=== PATIENT | male | born 1935 | race Caucasian/White ===

== ENCOUNTER 2021-06-26 13:20 | Inpatient (IN) | payer MEDICARE ==
[2021-06-26 15:00] LABS: #Basophils 0.1 thou/uL (0.0-0.2); #Eosinphils 0.5 thou/uL (0.0-0.7); #Lymphocytes 1.7 thou/uL (1.20-3.40); #Monocytes 0.9 thou/uL (0.11-0.59); #Neutrophils 4.5 thou/uL (1.40-6.50); %Basophils 0.7 % (0.0-1.0); %Eosinophils 6.8 % (0.0-10.0); %Lymphocytes 21.8 % (21.0-51.0); %Monocytes 12.1 % (0.0-10.0); %Neutrophils 58.6 % (42.0-75.0); Hemoglobin 13.7 g/dL (14.0-18.0); Mean Corpuscular Hemoglobin 33.8 pg (27.0-31.0); Mean Platelet Volume 7.2 fL (7.4-10.4); Platelet Count 227 thou/uL (130-400); Red Blood Cell (RBC) Count 4.05 mill/uL (4.70-6.10); White Blood Cell (WBC) Count 7.7 thou/uL (4.8-10.8)
[2021-06-26 15:13] LABS: ALT (SGPT) 11 U/L (8-55); AST (SGOT) 19 U/L (5-34); Alkaline Phosphatase 88 U/L (40-110); Anion Gap 11 mmol/L (10-20); BUN (Urea Nitrogen) 24 mg/dL (8.4-25.7); Bilirubin, Total 0.6 mg/dL (0.2-1.2); Calc. Creatinine Clearance 0 mL/min (70-130); Calcium 9.7 mg/dL (7.8-10.44); Carbon Dioxide 27 mmol/L (23-31); Chloride 105 mmol/L (98-107); Globulin 3.6 g/dL (2.4-3.5); Glucose 82 mg/dL (83-110); Potassium 4.8 mmol/L (3.5-5.1); Protein, Total 7.6 g/dL (5.8-8.1); Sodium 138 mmol/L (136-145)
[2021-06-26] MEDS ORDERED: Ondansetron PF 4 MG/2 ML Vial IVP PRN (16:43)
[2021-06-26] MEDS ORDERED: Bisacodyl 10 MG SUPP PR PRN (16:43)
[2021-06-26] MEDS ORDERED: Ondansetron ODT 4 MG TAB PO PRN (16:43)
[2021-06-26] MEDS ORDERED: Acetaminophen 325 MG TAB PO PRN (16:43)
[2021-06-26] MEDS ORDERED: Bisacodyl 5 MG TAB PO PRN (16:43)
[2021-06-26 17:17] LABS: Hemoglobin A1c 5.5 % (4.0-6.0)
[2021-06-26 18:15] LABS: Bacteria/HPF None Seen HPF (None Seen); Bilirubin Negative (Negative); Blood, Urine Negative (Negative); Clarity Clear (Clear); Glucose, Urine (Dipstick) Normal (Negative); Ketone, Urine Negative (Negative); Leukocyte Negative Leu/uL (Negative); Nitrite Negative (Negative); Protein, Urine (Dipstick) Negative (Neg-Trace); RBC/HPF 0-3 HPF (0-3); Specific Gravity, Urine 1.016 (1.002-1.036); Squamous Epithelial None Seen HPF (0-3); Urobilinogen Normal mg/dL (Less than 2); WBC/HPF 0-3 HPF (0-3); pH, Urine 6.5 (5.0-9.0)
[2021-06-26 18:46] VITALS: BMI 29.4
[2021-06-26] MEDS: Senokot S 8.6-50 MG TAB PO SCH (20:07)
[2021-06-26 21:48] LABS: SARS-CoV-2 NAA Rapid Test Not Detected (NotDetected)
[2021-06-27 03:50] LABS: #Eosinphils 0.5 thou/uL (0.0-0.7); #Lymphocytes 1.9 thou/uL (1.20-3.40); #Monocytes 0.8 thou/uL (0.11-0.59); #Neutrophils 3.8 thou/uL (1.40-6.50); %Basophils 0.6 % (0.0-1.0); %Eosinophils 7.5 % (0.0-10.0); %Lymphocytes 26.9 % (21.0-51.0); %Monocytes 11.7 % (0.0-10.0); %Neutrophils 53.3 % (42.0-75.0); Hemoglobin 13.4 g/dL (14.0-18.0); Mean Corpuscular HGB CONC 32.8 g/dL (32.0-36.0); Mean Corpuscular Hemoglobin 33.4 pg (27.0-31.0); Mean Platelet Volume 7.1 fL (7.4-10.4); Platelet Count 201 thou/uL (130-400); RBC Distribution Width 12.9 % (11.5-14.5); Red Blood Cell (RBC) Count 4.02 mill/uL (4.70-6.10); White Blood Cell (WBC) Count 7.1 thou/uL (4.8-10.8)
[2021-06-27 04:01] LABS: INR-International Normal Ratio 1.1; Prothrombin Time 14.1 sec (12.0-14.7)
[2021-06-27 04:02] LABS: PTT 32.6 sec (22.9-36.1)
[2021-06-27 04:15] LABS: Anion Gap 14 mmol/L (10-20); BUN (Urea Nitrogen) 21 mg/dL (8.4-25.7); Calc. Creatinine Clearance 68 mL/min (70-130); Calcium 9.1 mg/dL (7.8-10.44); Carbon Dioxide 21 mmol/L (23-31); Chloride 106 mmol/L (98-107); Glucose 74 mg/dL (83-110); Phosphorus 3.9 mg/dL (2.3-4.7); Potassium 3.8 mmol/L (3.5-5.1); Sodium 137 mmol/L (136-145)
[2021-06-27] MEDS: Senokot S 8.6-50 MG TAB PO SCH ×2 (09:14→21:37)
[2021-06-27] MEDS: Losartan/Hydrochlorothiazide 100 mg/25 mg Tablet PO SCH (09:14)
[2021-06-27] MEDS: Escitalopram Oxalate 20 mg Tablet PO SCH (09:14)
[2021-06-27] MEDS ORDERED: Levofloxacin 500 mg/D5W 100 ml Premix Bag ONE (10:31)
[2021-06-27] MEDS ORDERED: Clindamycin/D5W 600 mg/50 ml Premix Bag ONE (11:56)
[2021-06-27] MEDS ORDERED: Vancomycin HCl 500 MG VIAL ONE (11:56)
[2021-06-27] MEDS ORDERED: Midazolam HCl 2 mg/2 ml Vial ONE (12:36)
[2021-06-27] MEDS ORDERED: Fentanyl 250 MCG/5 ML VIAL ONE (12:37)
[2021-06-27 13:12] LABS: T4 5.2 ug/dL (4.87-11.72); Thyroid Stimulating Hormone 1.2439 uIU/mL (0.35-4.94)
[2021-06-28 03:26] LABS: #Basophils 0.1 thou/uL (0.0-0.2); #Eosinphils 0.4 thou/uL (0.0-0.7); #Lymphocytes 1.5 thou/uL (1.20-3.40); #Neutrophils 4.7 thou/uL (1.40-6.50); %Basophils 0.9 % (0.0-1.0); %Eosinophils 4.6 % (0.0-10.0); %Lymphocytes 20.1 % (21.0-51.0); %Neutrophils 61.4 % (42.0-75.0); Hemoglobin 14.5 g/dL (14.0-18.0); Mean Corpuscular HGB CONC 33.7 g/dL (32.0-36.0); Mean Corpuscular Hemoglobin 34.1 pg (27.0-31.0); Mean Platelet Volume 7.1 fL (7.4-10.4); Platelet Count 200 thou/uL (130-400); RBC Distribution Width 12.8 % (11.5-14.5); Red Blood Cell (RBC) Count 4.26 mill/uL (4.70-6.10); White Blood Cell (WBC) Count 7.6 thou/uL (4.8-10.8)
[2021-06-28 03:50] LABS: Anion Gap 12 mmol/L (10-20); BUN (Urea Nitrogen) 17 mg/dL (8.4-25.7); Calc. Creatinine Clearance 60 mL/min (70-130); Calcium 9.1 mg/dL (7.8-10.44); Carbon Dioxide 24 mmol/L (23-31); Chloride 106 mmol/L (98-107); Glucose 81 mg/dL (83-110); Magnesium 1.8 mg/dL (1.6-2.6); Phosphorus 3.1 mg/dL (2.3-4.7); Potassium 4.4 mmol/L (3.5-5.1); Sodium 138 mmol/L (136-145)
[2021-06-28 07:17] VITALS: TEMP 98
[2021-06-28] MEDS: Senokot S 8.6-50 MG TAB PO SCH (09:51)
[2021-06-28] MEDS: Escitalopram Oxalate 20 mg Tablet PO SCH (09:51)
[2021-06-28] MEDS: Losartan/Hydrochlorothiazide 100 mg/25 mg Tablet PO SCH (09:51)
[2021-06-28 11:45] VITALS: BP 132/83
== END 2021-06-28 15:16 | disposition home or self-care (01) | DRG 243 ==
LOC: SUATTDRO 13:20 → ERS 13:20 → IMCU/EMU 16:36
PROVIDERS: ADMIT Family Medicine; ATTEND Hospitalist
PROC: 0JH604Z Insertion of Pacemaker, Single Chamber into Chest Subcutaneous Tissue and Fascia, Open Approach (ICD-10-PCS; principal; 2021-06-27)
PROC: 02HK3JZ Insertion of Pacemaker Lead into Right Ventricle, Percutaneous Approach (ICD-10-PCS; 2021-06-27)
DX: I48.21 Permanent atrial fibrillation (principal); I69.351 Hemiplegia and hemiparesis following cerebral infarction affecting right dominant side; R00.1 Bradycardia, unspecified; Z20.822 Contact with and (suspected) exposure to COVID-19; I10 Essential (primary) hypertension; G43.909 Migraine, unspecified, not intractable, without status migrainosus; F32.A Depression, unspecified; Z96.651 Presence of right artificial knee joint; G43.109 Migraine with aura, not intractable, without status migrainosus; F41.9 Anxiety disorder, unspecified; I08.3 Combined rheumatic disorders of mitral, aortic and tricuspid valves; E16.2 Hypoglycemia, unspecified; R73.9 Hyperglycemia, unspecified; Z88.0 Allergy status to penicillin; Z88.2 Allergy status to sulfonamides; Z91.041 Radiographic dye allergy status; Z91.018 Allergy to other foods; Z79.899 Other long term (current) drug therapy; Z90.49 Acquired absence of other specified parts of digestive tract; Z87.891 Personal history of nicotine dependence; Z82.49 Family history of ischemic heart disease and other diseases of the circulatory system; Z82.3 Family history of stroke; Z83.2 Family history of diseases of the blood and blood-forming organs and certain disorders involving the immune mechanism
CPT/HCPCS: 33207; 36415; 36416; 71045; 80048; 80053; 81001; 83036; 83735; 83880; 84100; 84436; 84443; 84484; 85025; 85610; 85730; 86850; 86900; 86901; 93005; 93010; 93306; 93798; 99152; C1785; C1898; J1956; J2250; J3010; J3370; J3490; U0002

== ENCOUNTER 2022-05-04 05:46 | Inpatient (IN) | payer MEDICARE, OTHER ==
[2022-05-04 07:10] LABS: #Eosinphils 0.1 thou/uL (0.0-0.7); #Lymphocytes 0.8 thou/uL (1.20-3.40); #Neutrophils 9.8 thou/uL (1.40-6.50); %Basophils 0.4 % (0.0-1.0); %Eosinophils 1.1 % (0.0-10.0); %Lymphocytes 6.7 % (21.0-51.0); %Monocytes 8.5 % (0.0-10.0); %Neutrophils 83.3 % (42.0-75.0); Hemoglobin 13.7 g/dL (14.0-18.0); Mean Corpuscular HGB CONC 33.7 g/dL (32.0-36.0); Mean Corpuscular Hemoglobin 34.5 pg (27.0-31.0); Mean Platelet Volume 7.7 fL (7.4-10.4); Platelet Count 221 10x3/uL (130-400); RBC Distribution Width 11.8 % (11.5-14.5); Red Blood Cell (RBC) Count 3.97 mill/uL (4.70-6.10); White Blood Cell (WBC) Count 11.8 10x3/uL (4.8-10.8)
[2022-05-04 07:31] LABS: ALT (SGPT) 11 U/L (8-55); AST (SGOT) 21 U/L (5-34); Albumin 3.7 g/dL (3.4-4.8); Alkaline Phosphatase 72 U/L (40-110); Anion Gap 13 mmol/L (10-20); BUN (Urea Nitrogen) 21 mg/dL (8.4-25.7); Bilirubin, Total 0.7 mg/dL (0.2-1.2); Calc. Creatinine Clearance 0 mL/min (70-130); Calcium 9.5 mg/dL (7.8-10.44); Carbon Dioxide 23 mmol/L (23-31); Chloride 105 mmol/L (98-107); Estimated GFR 46; Globulin 3.4 g/dL (2.4-3.5); Glucose 86 mg/dL (83-110); Magnesium 1.8 mg/dL (1.6-2.6); Potassium 3.8 mmol/L (3.5-5.1); Protein, Total 7.1 g/dL (5.8-8.1); Sodium 137 mmol/L (136-145)
[2022-05-04] MEDS ORDERED: Aspirin Chewable 81 MG TAB ONE (07:56)
[2022-05-04 08:34] LABS: Bacteria/HPF None Seen HPF (None Seen); Bilirubin Negative (Negative); Blood, Urine 3+ (Negative); Clarity Clear (Clear); Glucose, Urine (Dipstick) Normal (Negative); Ketone, Urine Negative (Negative); Leukocyte Negative Leu/uL (Negative); Nitrite Negative (Negative); Protein, Urine (Dipstick) Negative (Neg-Trace); RBC/HPF 21-50 HPF (0-3); Specific Gravity, Urine 1.011 (1.002-1.036); Squamous Epithelial None Seen HPF (0-3); Urobilinogen Normal mg/dL (Less than 2); WBC/HPF 0-3 HPF (0-3)
[2022-05-04] MEDS ORDERED: Azithromycin 500 MG VIAL ONE (08:53)
[2022-05-04] MEDS ORDERED: cefTRIAXone\\ROCEPHIN 2 GM VIAL ONE (08:53)
[2022-05-04] MEDS ORDERED: Furosemide 40 MG/4 ML VIAL ONE (08:53)
[2022-05-04 08:59] LABS: SARS-CoV-2 NAA Rapid Test Not Detected (NotDetected)
[2022-05-04 10:15] LABS: Troponin I 0.067 ng/mL (< 0.028)
[2022-05-04] MEDS ORDERED: Acetaminophen 500 MG TAB ONE (10:26)
[2022-05-04] MEDS ORDERED: Benzonatate 100 MG CAP PO PRN (12:19)
[2022-05-04] MEDS ORDERED: Acetaminophen 500 MG TAB PO PRN (12:19)
[2022-05-04] MEDS ORDERED: Ondansetron PF 4 MG/2 ML Vial IVP PRN (12:19)
[2022-05-04] MEDS ORDERED: Ondansetron ODT 4 MG TAB PO PRN (12:19)
[2022-05-04 13:12] VITALS: BMI 27.7
[2022-05-04 13:15] LABS: Troponin I 0.072 ng/mL (< 0.028)
[2022-05-04] MEDS: Furosemide 20 MG/2 ML VIAL SLOW IVP SCH (14:01)
[2022-05-04] MEDS: Famotidine 20 MG TAB PO SCH (20:09)
[2022-05-04] MEDS: Ketotifen Fumarate 0.025% Ophth Soln 5 ml Bottle EA EYE SCH (20:13)
[2022-05-05] MEDS: Furosemide 20 MG/2 ML VIAL SLOW IVP SCH (05:24)
[2022-05-05 05:47] LABS: #Basophils 0.1 thou/uL (0.0-0.2); #Eosinphils 0.3 thou/uL (0.0-0.7); #Lymphocytes 1.2 thou/uL (1.20-3.40); #Monocytes 0.9 thou/uL (0.11-0.59); %Basophils 0.7 % (0.0-1.0); %Eosinophils 3.8 % (0.0-10.0); %Lymphocytes 13.6 % (21.0-51.0); %Monocytes 10.5 % (0.0-10.0); %Neutrophils 71.4 % (42.0-75.0); Hemoglobin 13.8 g/dL (14.0-18.0); Mean Corpuscular HGB CONC 33.6 g/dL (32.0-36.0); Mean Corpuscular Hemoglobin 34.3 pg (27.0-31.0); Mean Platelet Volume 7.6 fL (7.4-10.4); Platelet Count 222 10x3/uL (130-400); RBC Distribution Width 11.7 % (11.5-14.5); Red Blood Cell (RBC) Count 4.03 mill/uL (4.70-6.10); White Blood Cell (WBC) Count 8.4 10x3/uL (4.8-10.8)
[2022-05-05 06:01] LABS: Anion Gap 14 mmol/L (10-20); BUN (Urea Nitrogen) 23 mg/dL (8.4-25.7); Calc. Creatinine Clearance 43 mL/min (70-130); Calcium 9.1 mg/dL (7.8-10.44); Carbon Dioxide 25 mmol/L (23-31); Chloride 101 mmol/L (98-107); Estimated GFR 43; Glucose 87 mg/dL (83-110); Magnesium 1.9 mg/dL (1.6-2.6); Potassium 3.4 mmol/L (3.5-5.1); Sodium 137 mmol/L (136-145)
[2022-05-05] MEDS ORDERED: Losartan/Hydrochlorothiazide 100 mg/25 mg Tablet PO SCH (09:00)
[2022-05-05] MEDS: Aspirin 81 mg Enteric Coated Tablet PO SCH (10:32)
[2022-05-05] MEDS: Escitalopram Oxalate 20 mg Tablet PO SCH (10:32)
[2022-05-05] MEDS: Ketotifen Fumarate 0.025% Ophth Soln 5 ml Bottle EA EYE SCH ×2 (10:32→19:49)
[2022-05-05] MEDS ORDERED: Potassium Chloride 20 MEQ TAB PO SCH (11:00)
[2022-05-05] MEDS: Famotidine 20 MG TAB PO SCH (19:49)
[2022-05-06 08:20] LABS: Anion Gap 13 mmol/L (10-20); BUN (Urea Nitrogen) 27 mg/dL (8.4-25.7); Calc. Creatinine Clearance 53 mL/min (70-130); Calcium 9.6 mg/dL (7.8-10.44); Carbon Dioxide 25 mmol/L (23-31); Chloride 102 mmol/L (98-107); Estimated GFR 54; Glucose 99 mg/dL (83-110); Potassium 3.5 mmol/L (3.5-5.1); Sodium 136 mmol/L (136-145)
[2022-05-06] MEDS: Carvedilol 6.25 MG TAB PO SCH ×2 (09:47→16:49)
[2022-05-06] MEDS: Escitalopram Oxalate 20 mg Tablet PO SCH (09:48)
[2022-05-06] MEDS: Aspirin 81 mg Enteric Coated Tablet PO SCH (09:48)
[2022-05-06] MEDS: Ketotifen Fumarate 0.025% Ophth Soln 5 ml Bottle EA EYE SCH ×2 (09:48→19:41)
[2022-05-06] MEDS ORDERED: Enalaprilat Dihydrate 1.25 MG/ML VIAL SLOW IVP PRN (10:51)
[2022-05-06] MEDS: predniSONE 50 MG TAB PO SCH ×2 (12:38→16:52)
[2022-05-06] MEDS: diphenhydrAMINE 50 MG/ML VIAL IVP SCH ×2 (12:38→16:52)
[2022-05-06] MEDS: Famotidine/PF 20 mg/2ml Vial SLOW IVP SCH ×2 (12:38→16:52)
[2022-05-06] MEDS: Atorvastatin Calcium 40 MG TAB PO SCH (19:41)
[2022-05-07 05:44] LABS: Anion Gap 12 mmol/L (10-20); BUN (Urea Nitrogen) 40 mg/dL (8.4-25.7); Calc. Creatinine Clearance 49 mL/min (70-130); Calcium 9.6 mg/dL (7.8-10.44); Carbon Dioxide 26 mmol/L (23-31); Chloride 99 mmol/L (98-107); Cholesterol 156 mg/dl (< 200 Desired); Estimated GFR 48; Glucose 108 mg/dL (83-110); HDL Cholesterol 31 mg/dL (>60 Neg Risk); LDL Cholesterol, Calculated 111 mg/dL; Potassium 3.9 mmol/L (3.5-5.1); Sodium 133 mmol/L (136-145); Triglycerides 69 mg/dL (Less than 150)
[2022-05-07] MEDS: Aspirin 81 mg Enteric Coated Tablet PO SCH (08:46)
[2022-05-07] MEDS: Carvedilol 6.25 MG TAB PO SCH ×2 (08:46→16:06)
[2022-05-07] MEDS: Escitalopram Oxalate 20 mg Tablet PO SCH (08:46)
[2022-05-07] MEDS: Ketotifen Fumarate 0.025% Ophth Soln 5 ml Bottle EA EYE SCH ×2 (08:46→21:03)
[2022-05-07] MEDS ORDERED: OLANZapine 2.5 MG TAB PO SCH (20:30)
[2022-05-07] MEDS: Atorvastatin Calcium 40 MG TAB PO SCH (21:02)
[2022-05-08 06:28] LABS: Anion Gap 12 mmol/L (10-20); BUN (Urea Nitrogen) 39 mg/dL (8.4-25.7); Calc. Creatinine Clearance 54 mL/min (70-130); Carbon Dioxide 25 mmol/L (23-31); Chloride 104 mmol/L (98-107); Estimated GFR 55; Glucose 85 mg/dL (83-110); Potassium 3.5 mmol/L (3.5-5.1); Sodium 137 mmol/L (136-145)
[2022-05-08] MEDS: Carvedilol 6.25 MG TAB PO SCH ×2 (09:11→16:37)
[2022-05-08] MEDS: Escitalopram Oxalate 20 mg Tablet PO SCH (09:11)
[2022-05-08] MEDS: Aspirin 81 mg Enteric Coated Tablet PO SCH (09:11)
[2022-05-08] MEDS: Ketotifen Fumarate 0.025% Ophth Soln 5 ml Bottle EA EYE SCH ×2 (09:13→20:25)
[2022-05-08] MEDS: OLANZapine 2.5 MG TAB PO SCH ×2 (20:25→20:36)
[2022-05-08] MEDS: Atorvastatin Calcium 40 MG TAB PO SCH (20:25)
[2022-05-08] MEDS ORDERED: GUAIFENESIN SF SOLN 200 MG/10 ML UDCUP PO PRN (22:59)
[2022-05-09 07:11] LABS: Chloride 106 mmol/L (98-107)
[2022-05-09 07:12] LABS: Glucose 84 mg/dL (83-110); Potassium 3.9 mmol/L (3.5-5.1); Sodium 138 mmol/L (136-145)
[2022-05-09 07:14] LABS: Anion Gap 10 mmol/L (10-20); Carbon Dioxide 26 mmol/L (23-31)
[2022-05-09 07:16] LABS: Calc. Creatinine Clearance 55 mL/min (70-130); Estimated GFR 56
[2022-05-09 07:17] LABS: BUN (Urea Nitrogen) 35 mg/dL (8.4-25.7)
[2022-05-09] MEDS: Aspirin 81 mg Enteric Coated Tablet PO SCH (09:13)
[2022-05-09] MEDS: Carvedilol 6.25 MG TAB PO SCH (09:13)
[2022-05-09] MEDS: Escitalopram Oxalate 20 mg Tablet PO SCH (09:13)
[2022-05-09] MEDS: Ketotifen Fumarate 0.025% Ophth Soln 5 ml Bottle EA EYE SCH (09:14)
[2022-05-09 12:00] VITALS: BP 92/70; TEMP 97.8
== END 2022-05-09 17:06 | disposition home or self-care (01) | DRG 280 ==
LOC: ERS 05:46 → 2SW 09:17 → ERHOLD 09:17 → 2SW 13:02 → OBSVTOIN 05-05 10:06 → NEURO 05-07 17:49
PROVIDERS: ADMIT Family Medicine; ATTEND Internal Medicine
DX: I11.0 Hypertensive heart disease with heart failure (principal); I21.A1 Myocardial infarction type 2; I50.43 Acute on chronic combined systolic (congestive) and diastolic (congestive) heart failure; I63.511 Cerebral infarction due to unspecified occlusion or stenosis of right middle cerebral artery; I48.20 Chronic atrial fibrillation, unspecified; I69.951 Hemiplegia and hemiparesis following unspecified cerebrovascular disease affecting right dominant side; N17.9 Acute kidney failure, unspecified; I49.5 Sick sinus syndrome; F32.A Depression, unspecified; Z20.822 Contact with and (suspected) exposure to COVID-19; G43.909 Migraine, unspecified, not intractable, without status migrainosus; G93.89 Other specified disorders of brain; Z96.651 Presence of right artificial knee joint; Z90.49 Acquired absence of other specified parts of digestive tract; Z79.899 Other long term (current) drug therapy; Z79.82 Long term (current) use of aspirin
CPT/HCPCS: 36415; 70450; 70551; 71045; 80048; 80053; 80061; 81003; 81015; 82553; 83735; 83880; 84484; 85025; 87040; 93005; 93306; 93880; 95712; 95816; 95819; 95957; J0456; J0696; J1200; J1940; J7512; S0028

== ENCOUNTER 2022-05-31 09:59 | Inpatient (IN) | payer MEDICARE, OTHER ==
[2022-05-31 11:06] LABS: Hemoglobin 12.5 g/dL (14.0-18.0); Mean Corpuscular HGB CONC 33.8 g/dL (32.0-36.0); RBC Distribution Width 12.3 % (11.5-14.5); Red Blood Cell (RBC) Count 3.56 mill/uL (4.70-6.10)
[2022-05-31 11:25] LABS: Eosinophils 5 % (0-10); Lymphocytes 16 % (21-51); MDiff Complete? YES; Mean Platelet Volume 7.9 fL (7.4-10.4); Monocytes 24 % (0-10); Neutrophil 54 % (42-75); Ovalocytes SLIGHT = 2-5 cells (100X) (0-1/hpf); Platelet Count 175 10x3/uL (130-400); Platelet Morphology Comment Appears Adequate; Polychromasia SLIGHT = 2-3 cells (100X) (0-2/hpf); Vacuoles SLIGHT; White Blood Cell (WBC) Count 6.5 10x3/uL (4.8-10.8)
[2022-05-31] MEDS ORDERED: Furosemide 40 MG/4 ML VIAL ONE (11:41)
[2022-05-31] MEDS ORDERED: Furosemide 40 MG TAB ONE (11:41)
[2022-05-31] MEDS ORDERED: Aspirin Chewable 81 MG TAB ONE (11:41)
[2022-05-31 11:43] LABS: ALT (SGPT) 55 U/L (8-55); AST (SGOT) 41 U/L (5-34); Albumin 3.4 g/dL (3.4-4.8); Alkaline Phosphatase 123 U/L (40-110); Anion Gap 12 mmol/L (10-20); BUN (Urea Nitrogen) 20 mg/dL (8.4-25.7); Bilirubin, Total 1.2 mg/dL (0.2-1.2); Calc. Creatinine Clearance 0 mL/min (70-130); Calcium 9.1 mg/dL (7.8-10.44); Carbon Dioxide 23 mmol/L (23-31); Chloride 106 mmol/L (98-107); Estimated GFR 61; Globulin 3.4 g/dL (2.4-3.5); Glucose 89 mg/dL (83-110); Protein, Total 6.8 g/dL (5.8-8.1); Sodium 137 mmol/L (136-145)
[2022-05-31 12:04] LABS: CKMB 2.3 ng/mL (0-6.6)
[2022-05-31 13:54] LABS: SARS-CoV-2 NAA Rapid Test Not Detected (NotDetected)
[2022-05-31] MEDS ORDERED: Aspirin 325 MG TAB PO SCH (14:00)
[2022-05-31] MEDS ORDERED: Acetaminophen 325 MG TAB PO PRN (14:00)
[2022-05-31] MEDS ORDERED: Losartan 25 MG TAB PO SCH (14:00)
[2022-05-31 14:50] LABS: Magnesium 1.9 mg/dL (1.6-2.6)
[2022-05-31 15:28] VITALS: BMI 28.0
[2022-05-31] MEDS: Carvedilol 6.25 MG TAB PO SCH (17:11)
[2022-05-31 17:40] LABS: Troponin I 0.028 ng/mL (< 0.028)
[2022-05-31] MEDS ORDERED: Carvedilol 6.25 MG TAB PO SCH (21:00)
[2022-05-31] MEDS: Atorvastatin Calcium 40 MG TAB PO SCH (21:12)
[2022-05-31] MEDS: Ketotifen Fumarate 0.025% Ophth Soln 5 ml Bottle EA EYE SCH (21:15)
[2022-06-01 05:03] LABS: #Eosinphils 0.3 thou/uL (0.0-0.7); #Neutrophils 4.6 thou/uL (1.40-6.50); %Basophils 0.5 % (0.0-1.0); %Eosinophils 4.9 % (0.0-10.0); %Lymphocytes 14.5 % (21.0-51.0); %Monocytes 14.8 % (0.0-10.0); %Neutrophils 65.3 % (42.0-75.0); Hemoglobin 12.9 g/dL (14.0-18.0); Mean Corpuscular HGB CONC 34.3 g/dL (32.0-36.0); Mean Corpuscular Hemoglobin 35.6 pg (27.0-31.0); Mean Platelet Volume 8.1 fL (7.4-10.4); Platelet Count 168 10x3/uL (130-400); RBC Distribution Width 12.1 % (11.5-14.5); Red Blood Cell (RBC) Count 3.63 mill/uL (4.70-6.10)
[2022-06-01 05:23] LABS: Anion Gap 15 mmol/L (10-20); BUN (Urea Nitrogen) 19 mg/dL (8.4-25.7); Calc. Creatinine Clearance 59 mL/min (70-130); Calcium 9.1 mg/dL (7.8-10.44); Carbon Dioxide 23 mmol/L (23-31); Chloride 102 mmol/L (98-107); Estimated GFR 64; Glucose 75 mg/dL (83-110); Potassium 3.6 mmol/L (3.5-5.1); Sodium 136 mmol/L (136-145)
[2022-06-01] MEDS: Furosemide 40 MG/4 ML VIAL SLOW IVP SCH ×2 (06:50→16:19)
[2022-06-01] MEDS ORDERED: Aspirin 325 MG TAB PO SCH (09:00)
[2022-06-01] MEDS ORDERED: Losartan 25 MG TAB PO SCH (09:00)
[2022-06-01] MEDS: Escitalopram Oxalate 20 mg Tablet PO SCH (10:01)
[2022-06-01] MEDS: Losartan 25 MG TAB PO SCH (10:01)
[2022-06-01] MEDS: Carvedilol 6.25 MG TAB PO SCH ×2 (10:01→16:19)
[2022-06-01] MEDS: Ketotifen Fumarate 0.025% Ophth Soln 5 ml Bottle EA EYE SCH ×2 (10:04→21:45)
[2022-06-01] MEDS: Aspirin 325 MG TAB PO SCH (10:04)
[2022-06-01] MEDS: Atorvastatin Calcium 40 MG TAB PO SCH (21:45)
[2022-06-02] MEDS: Furosemide 40 MG/4 ML VIAL SLOW IVP SCH ×2 (05:12→18:00)
[2022-06-02] MEDS ORDERED: Furosemide 40 MG/4 ML VIAL SLOW IVP SCH (09:00)
[2022-06-02] MEDS: Carvedilol 6.25 MG TAB PO SCH ×2 (09:59→18:00)
[2022-06-02] MEDS: Escitalopram Oxalate 20 mg Tablet PO SCH (09:59)
[2022-06-02] MEDS: Aspirin 325 MG TAB PO SCH (09:59)
[2022-06-02] MEDS: Losartan 25 MG TAB PO SCH (09:59)
[2022-06-02] MEDS: Ketotifen Fumarate 0.025% Ophth Soln 5 ml Bottle EA EYE SCH (10:00)
[2022-06-02 10:35] LABS: Anion Gap 16 mmol/L (10-20); BUN (Urea Nitrogen) 27 mg/dL (8.4-25.7); Calc. Creatinine Clearance 48 mL/min (70-130); Calcium 9.3 mg/dL (7.8-10.44); Carbon Dioxide 25 mmol/L (23-31); Chloride 99 mmol/L (98-107); Estimated GFR 53; Glucose 92 mg/dL (83-110); Magnesium 1.8 mg/dL (1.6-2.6); Phosphorus 3.5 mg/dL (2.3-4.7); Potassium 3.4 mmol/L (3.5-5.1); Sodium 137 mmol/L (136-145)
[2022-06-02] MEDS ORDERED: Loratadine 10 MG TAB PO PRN (12:00)
[2022-06-02] MEDS ORDERED: Magnesium 2 GM/50 ML(in water) 2 GM in Premix Bag 1 BAG IVPB SCH (16:45)
[2022-06-02] MEDS ORDERED: Electrolyte Replacement Protocol 1 EACH FS SCH (16:45)
[2022-06-02] MEDS ORDERED: Potassium Chloride 20 MEQ TAB PO SCH ×2 (17:00→21:15)
[2022-06-02] MEDS: guaiFENesin ER 600 MG TAB PO SCH (21:06)
[2022-06-02] MEDS: Atorvastatin Calcium 40 MG TAB PO SCH (21:06)
[2022-06-03] MEDS: Ketotifen Fumarate 0.025% Ophth Soln 5 ml Bottle EA EYE SCH ×3 (00:40→23:40)
[2022-06-03] MEDS: Furosemide 40 MG/4 ML VIAL SLOW IVP SCH (05:37)
[2022-06-03 05:40] LABS: Anion Gap 16 mmol/L (10-20); BUN (Urea Nitrogen) 40 mg/dL (8.4-25.7); Calc. Creatinine Clearance 37 mL/min (70-130); Calcium 9.4 mg/dL (7.8-10.44); Carbon Dioxide 24 mmol/L (23-31); Chloride 100 mmol/L (98-107); Estimated GFR 33; Glucose 93 mg/dL (83-110); Magnesium 2.3 mg/dL (1.6-2.6); Potassium 3.6 mmol/L (3.5-5.1); Sodium 136 mmol/L (136-145)
[2022-06-03 06:33] LABS: Eosinophils 1 % (0-10); Hemoglobin 13.5 g/dL (14.0-18.0); Hypochromia SLIGHT = 6-15 cells (100X) (0-5/hpf); Lymphocytes 14 % (21-51); MDiff Complete? YES; Mean Corpuscular HGB CONC 33.4 g/dL (32.0-36.0); Mean Corpuscular Hemoglobin 34.4 pg (27.0-31.0); Monocytes 10 % (0-10); Neutrophil 75 % (42-75); Platelet Count 194 10x3/uL (130-400); Platelet Morphology Comment Appears Adequate; RBC Distribution Width 12.2 % (11.5-14.5); Red Blood Cell (RBC) Count 3.93 mill/uL (4.70-6.10); White Blood Cell (WBC) Count 6.2 10x3/uL (4.8-10.8)
[2022-06-03] MEDS: Losartan 25 MG TAB PO SCH (09:02)
[2022-06-03] MEDS: guaiFENesin ER 600 MG TAB PO SCH ×2 (09:03→23:30)
[2022-06-03] MEDS: Aspirin 325 MG TAB PO SCH (09:03)
[2022-06-03] MEDS: Escitalopram Oxalate 20 mg Tablet PO SCH (09:03)
[2022-06-03] MEDS: Carvedilol 6.25 MG TAB PO SCH (09:04)
[2022-06-03] MEDS ORDERED: Albumin 25% 25 GM/100 ML BOT IVPB SCH (11:30)
[2022-06-03] MEDS ORDERED: Carvedilol 3.125 MG TAB PO SCH (17:00)
[2022-06-03] MEDS: Famotidine/PF 20 mg/2ml Vial SLOW IVP SCH ×2 (17:15→23:31)
[2022-06-03] MEDS: diphenhydrAMINE 50 MG/ML VIAL IVP SCH ×2 (17:15→23:30)
[2022-06-03] MEDS: predniSONE 50 MG TAB PO SCH ×2 (17:16→23:30)
[2022-06-03] MEDS ORDERED: Sodium Chloride 0.9% 500 ML IV SCH (18:15)
[2022-06-03] MEDS: Atorvastatin Calcium 40 MG TAB PO SCH (23:30)
[2022-06-04 05:06] LABS: #Lymphocytes 0.4 thou/uL (1.20-3.40); #Monocytes 0.1 thou/uL (0.11-0.59); #Neutrophils 2.9 thou/uL (1.40-6.50); %Basophils 0.2 % (0.0-1.0); %Eosinophils 0.3 % (0.0-10.0); %Lymphocytes 12.7 % (21.0-51.0); %Neutrophils 84.8 % (42.0-75.0); Hemoglobin 13.4 g/dL (14.0-18.0); Mean Corpuscular HGB CONC 34.2 g/dL (32.0-36.0); Mean Corpuscular Hemoglobin 35.3 pg (27.0-31.0); Mean Platelet Volume 8.1 fL (7.4-10.4); Platelet Count 194 10x3/uL (130-400); Red Blood Cell (RBC) Count 3.81 mill/uL (4.70-6.10); White Blood Cell (WBC) Count 3.4 10x3/uL (4.8-10.8)
[2022-06-04 05:24] LABS: Anion Gap 15 mmol/L (10-20); BUN (Urea Nitrogen) 44 mg/dL (8.4-25.7); Calc. Creatinine Clearance 39 mL/min (70-130); Calcium 9.3 mg/dL (7.8-10.44); Carbon Dioxide 23 mmol/L (23-31); Chloride 103 mmol/L (98-107); Estimated GFR 36; Glucose 171 mg/dL (83-110); Sodium 137 mmol/L (136-145)
[2022-06-04] MEDS: diphenhydrAMINE 50 MG/ML VIAL IVP SCH ×3 (05:55→17:10)
[2022-06-04] MEDS: Famotidine/PF 20 mg/2ml Vial SLOW IVP SCH ×3 (05:55→17:10)
[2022-06-04] MEDS: predniSONE 50 MG TAB PO SCH ×3 (05:55→17:10)
[2022-06-04] MEDS ORDERED: Lidocaine 1% (PF) 30 ML VIAL ONE (07:45)
[2022-06-04] MEDS ORDERED: Clindamycin/D5W 900 mg/50 ml Premix Bag ONE (07:45)
[2022-06-04] MEDS ORDERED: Gentamicin 80 MG/2 ML VIAL ONE (07:45)
[2022-06-04] MEDS: guaiFENesin ER 600 MG TAB PO SCH ×2 (08:42→20:22)
[2022-06-04] MEDS: Escitalopram Oxalate 20 mg Tablet PO SCH (08:42)
[2022-06-04] MEDS: Ketotifen Fumarate 0.025% Ophth Soln 5 ml Bottle EA EYE SCH ×2 (08:42→20:23)
[2022-06-04] MEDS: Aspirin 325 MG TAB PO SCH (08:42)
[2022-06-04] MEDS ORDERED: Midazolam HCl 2 mg/2 ml Vial ONE (10:37)
[2022-06-04] MEDS ORDERED: fentaNYL PF 100 MCG/2 ML SYRINGE ONE (10:37)
[2022-06-04] MEDS ORDERED: Propofol 500 MG/50 ML VIAL ONE (10:37)
[2022-06-04] MEDS ORDERED: ePHEDrine 50 MG/ML VIAL ONE (10:40)
[2022-06-04] MEDS ORDERED: PHENYLEPHRINE-NS 100 MCG/ML 10 ML SYRINGE ONE (10:40)
[2022-06-04] MEDS ORDERED: PROPOFOL 200 MG/20 ML VIAL ONE (10:40)
[2022-06-04] MEDS ORDERED: HYDROcodone/Acetaminophen 5/325 mg Tablet PO PRN ×2 (14:30)
[2022-06-04] MEDS ORDERED: Iopamidol 370 76% 50 ML VIAL FS ONE (14:53)
[2022-06-04] MEDS: Cephalexin 250 MG CAP PO SCH ×2 (17:10→20:23)
[2022-06-04] MEDS: Atorvastatin Calcium 40 MG TAB PO SCH (20:23)
[2022-06-05 04:25] LABS: Anion Gap 12 mmol/L (10-20); BUN (Urea Nitrogen) 42 mg/dL (8.4-25.7); Calc. Creatinine Clearance 49 mL/min (70-130); Carbon Dioxide 26 mmol/L (23-31); Chloride 101 mmol/L (98-107); Estimated GFR 46; Glucose 134 mg/dL (83-110); Sodium 135 mmol/L (136-145)
[2022-06-05] MEDS: Escitalopram Oxalate 20 mg Tablet PO SCH (09:23)
[2022-06-05] MEDS: guaiFENesin ER 600 MG TAB PO SCH (09:23)
[2022-06-05] MEDS: Cephalexin 250 MG CAP PO SCH (09:23)
[2022-06-05] MEDS: Aspirin 325 MG TAB PO SCH (09:24)
[2022-06-05] MEDS: Ketotifen Fumarate 0.025% Ophth Soln 5 ml Bottle EA EYE SCH (09:26)
[2022-06-05 12:15] VITALS: BP 129/65; TEMP 97.4
== END 2022-06-05 17:30 | disposition home or self-care (01) | DRG 245 ==
LOC: ERS 09:59 → 2NO 13:57 → OBSVTOIN 06-02 13:34
PROVIDERS: ADMIT Internal Medicine; ATTEND Hospitalist
PROC: 0JH609Z Insertion of Cardiac Resynchronization Defibrillator Pulse Generator into Chest Subcutaneous Tissue and Fascia, Open Approach (ICD-10-PCS; principal; 2022-06-04)
PROC: 02HK0JZ Insertion of Pacemaker Lead into Right Ventricle, Open Approach (ICD-10-PCS; 2022-06-04)
DX: I13.0 Hypertensive heart and chronic kidney disease with heart failure and stage 1 through stage 4 chronic kidney disease, or unspecified chronic kidney disease (principal); I21.A1 Myocardial infarction type 2; I50.43 Acute on chronic combined systolic (congestive) and diastolic (congestive) heart failure; N17.9 Acute kidney failure, unspecified; I47.29 Other ventricular tachycardia; I48.19 Other persistent atrial fibrillation; Z20.822 Contact with and (suspected) exposure to COVID-19; I49.5 Sick sinus syndrome; Z96.651 Presence of right artificial knee joint; G43.109 Migraine with aura, not intractable, without status migrainosus; I35.0 Nonrheumatic aortic (valve) stenosis; I49.3 Ventricular premature depolarization; N18.2 Chronic kidney disease, stage 2 (mild); E87.6 Hypokalemia; E86.1 Hypovolemia; E83.42 Hypomagnesemia; I42.8 Other cardiomyopathies; Z79.01 Long term (current) use of anticoagulants; Z88.0 Allergy status to penicillin; Z95.0 Presence of cardiac pacemaker; Z88.2 Allergy status to sulfonamides; Z91.041 Radiographic dye allergy status; Z91.018 Allergy to other foods; Z79.82 Long term (current) use of aspirin; Z79.899 Other long term (current) drug therapy; Z87.891 Personal history of nicotine dependence; Z90.49 Acquired absence of other specified parts of digestive tract; Z86.73 Personal history of transient ischemic attack (TIA), and cerebral infarction without residual deficits
CPT/HCPCS: 33225; 33233; 33234; 33244; 33249; 36415; 71045; 71250; 80048; 80053; 82553; 83735; 83880; 84100; 84484; 85025; 93005; 93306; 93798; 96372; 96374; 96376; C1769; C1882; C1898; C1900; G0378; J1200; J1580; J1650; J1940; J2001; J2250; J2704; J3475; J3490; J7030; J7512; P9047; Q9967; S0028

== ENCOUNTER 2022-08-05 20:15 | Emergency (ER) | payer MEDICARE, OTHER | END 2022-08-05 22:28 | disposition home or self-care (01) | LOC: ERS 20:15 | DX: U07.1 COVID-19 (principal); I11.0 Hypertensive heart disease with heart failure; I50.9 Heart failure, unspecified; Z79.82 Long term (current) use of aspirin; Z79.899 Other long term (current) drug therapy | CPT/HCPCS: 71045 ==

== ENCOUNTER 2022-10-16 01:54 | Emergency (ER) | payer OTHER ==
[2022-10-16 03:02] LABS: #Basophils 0.1 thou/uL (0.0-0.2); #Eosinphils 0.3 thou/uL (0.0-0.7); #Monocytes 0.7 thou/uL (0.11-0.59); #Neutrophils 10.6 thou/uL (1.40-6.50); %Basophils 0.4 % (0.0-1.0); %Lymphocytes 7.3 % (21.0-51.0); %Monocytes 5.8 % (0.0-10.0); Hemoglobin 13.9 g/dL (14.0-18.0); Mean Corpuscular HGB CONC 33.7 g/dL (32.0-36.0); Mean Corpuscular Hemoglobin 33.2 pg (27.0-31.0); Mean Corpuscular Volume 98.6 fl (78.0-98.0); Platelet Count 201 10x3/uL (130-400); RBC Distribution Width 14.9 % (11.5-14.5); Red Blood Cell (RBC) Count 4.19 mill/uL (4.70-6.10); White Blood Cell (WBC) Count 12.6 10x3/uL (4.8-10.8)
[2022-10-16 03:26] LABS: ALT (SGPT) 11 U/L (8-55); AST (SGOT) 18 U/L (5-34); Albumin 3.9 g/dL (3.4-4.8); Alkaline Phosphatase 110 U/L (40-110); Anion Gap 16 mmol/L (10-20); BUN (Urea Nitrogen) 22 mg/dL (8.4-25.7); Bilirubin, Total 1.1 mg/dL (0.2-1.2); Calc. Creatinine Clearance 0 mL/min (70-130); Calcium 9.1 mg/dL (7.8-10.44); Carbon Dioxide 21 mmol/L (23-31); Chloride 103 mmol/L (98-107); Estimated GFR 55; Globulin 3.7 g/dL (2.4-3.5); Glucose 88 mg/dL (83-110); Lipase 30 U/L (8-78); Potassium 3.9 mmol/L (3.5-5.1); Protein, Total 7.6 g/dL (5.8-8.1); Sodium 136 mmol/L (136-145)
[2022-10-16] MEDS ORDERED: Ketorolac Tromethamine 30 MG/ML VIAL ONE (05:49)
[2022-10-16] MEDS ORDERED: Ondansetron PF 4 MG/2 ML Vial ONE (05:50)
[2022-10-16] MEDS ORDERED: Morphine 4 MG/ML VIAL ONE (05:50)
[2022-10-16 07:35] LABS: Bacteria/HPF None Seen HPF (None Seen); Bilirubin Negative (Negative); Blood, Urine Negative (Negative); CAUTI Indications for Culture Pelvic or flank pain; Clarity Clear (Clear); Glucose, Urine (Dipstick) Greater than 1000 mg/dL (Negative); Ketone, Urine Negative (Negative); Leukocyte Negative Leu/uL (Negative); Nitrite Negative (Negative); Protein, Urine (Dipstick) 10 mg/dL (Neg-Trace); RBC/HPF 0-3 HPF (0-3); Specific Gravity, Urine 1.025 (1.002-1.036); Squamous Epithelial 0-3 HPF (0-3); WBC/HPF 0-3 HPF (0-3)
[2022-10-16 07:37] LABS: Urine Culture Reflex No No
== END 2022-10-16 07:05 | disposition home or self-care (01) ==
LOC: ERS 01:54
DX: R51.9 Headache, unspecified (principal); I11.0 Hypertensive heart disease with heart failure; I50.9 Heart failure, unspecified; Z79.82 Long term (current) use of aspirin; Z79.899 Other long term (current) drug therapy
CPT/HCPCS: 36415; 70450; 71045; 80053; 81001; 83605; 83690; 83880; 84443; 84484; 85025; 87040; 87086; 96361; 96374; 96375; J1885; J2270; J2405

== ENCOUNTER 2022-10-21 07:12 | Inpatient (IN) | payer OTHER ==
[2022-10-21] MEDS ORDERED: Furosemide 40 MG/4 ML VIAL ONE (07:31)
[2022-10-21] MEDS ORDERED: Aspirin Chewable 81 MG TAB ONE (07:31)
[2022-10-21 07:35] LABS: #Basophils 0.1 thou/uL (0.0-0.2); #Eosinphils 0.2 thou/uL (0.0-0.7); %Basophils 0.5 % (0.0-1.0); %Eosinophils 1.6 % (0.0-10.0); %Lymphocytes 7.1 % (21.0-51.0); %Monocytes 9.4 % (0.0-10.0); Hemoglobin 12.9 g/dL (14.0-18.0); Mean Corpuscular HGB CONC 32.5 g/dL (32.0-36.0); Mean Corpuscular Hemoglobin 33.1 pg (27.0-31.0); Mean Corpuscular Volume 101.8 fl (78.0-98.0); Mean Platelet Volume 9.8 fL (7.4-10.4); Platelet Count 175 10x3/uL (130-400); RBC Distribution Width 14.9 % (11.5-14.5); White Blood Cell (WBC) Count 11.1 10x3/uL (4.8-10.8)
[2022-10-21] MEDS ORDERED: Magnesium 2 GM/50 ML BAG (IN WATER) ONE (07:41)
[2022-10-21 08:00] LABS: ALT (SGPT) 48 U/L (8-55); AST (SGOT) 58 U/L (5-34); Albumin 3.6 g/dL (3.4-4.8); Alkaline Phosphatase 134 U/L (40-110); Anion Gap 13 mmol/L (10-20); BUN (Urea Nitrogen) 20 mg/dL (8.4-25.7); Bilirubin, Total 0.7 mg/dL (0.2-1.2); CK (CPK) 69 U/L (30-200); Calc. Creatinine Clearance 0 mL/min (70-130); Calcium 9.5 mg/dL (7.8-10.44); Carbon Dioxide 22 mmol/L (23-31); Chloride 105 mmol/L (98-107); Estimated GFR 53; Globulin 3.3 g/dL (2.4-3.5); Glucose 114 mg/dL (83-110); Lipase 26 U/L (8-78); Potassium 4.4 mmol/L (3.5-5.1); Protein, Total 6.9 g/dL (5.8-8.1); Sodium 136 mmol/L (136-145)
[2022-10-21] MEDS ORDERED: Docusate 100 MG CAP PO PRN (09:35)
[2022-10-21] MEDS ORDERED: Acetaminophen 325 MG TAB PO PRN (09:36)
[2022-10-21] MEDS ORDERED: Electrolyte Replacement Protocol 1 EACH FS SCH (09:45)
[2022-10-21 15:11] LABS: Troponin I 0.046 ng/mL (< 0.028)
[2022-10-21 17:32] VITALS: BMI 26.9
[2022-10-21] MEDS ORDERED: Amiodarone 200 MG TAB PO SCH (18:37)
[2022-10-21] MEDS: Atorvastatin Calcium 40 MG TAB PO SCH (20:02)
[2022-10-21 20:14] LABS: Potassium 3.8 mmol/L (3.5-5.1)
[2022-10-21] MEDS ORDERED: Potassium Chloride 20 MEQ TAB PO SCH (21:00)
[2022-10-22 05:18] LABS: #Basophils 0.1 thou/uL (0.0-0.2); #Eosinphils 0.4 thou/uL (0.0-0.7); #Monocytes 1.1 thou/uL (0.11-0.59); #Neutrophils 6.8 thou/uL (1.40-6.50); %Basophils 0.7 % (0.0-1.0); %Eosinophils 3.9 % (0.0-10.0); %Lymphocytes 13.7 % (21.0-51.0); %Monocytes 11.1 % (0.0-10.0); %Neutrophils 70.4 % (42.0-75.0); Hemoglobin 11.9 g/dL (14.0-18.0); Mean Corpuscular HGB CONC 33.2 g/dL (32.0-36.0); Mean Corpuscular Hemoglobin 33.6 pg (27.0-31.0); Mean Corpuscular Volume 101.1 fl (78.0-98.0); Mean Platelet Volume 10.2 fL (7.4-10.4); Platelet Count 178 10x3/uL (130-400); RBC Distribution Width 14.7 % (11.5-14.5); Red Blood Cell (RBC) Count 3.54 mill/uL (4.70-6.10); White Blood Cell (WBC) Count 9.7 10x3/uL (4.8-10.8)
[2022-10-22 05:42] LABS: ALT (SGPT) 31 U/L (8-55); AST (SGOT) 28 U/L (5-34); Albumin 3.2 g/dL (3.4-4.8); Alkaline Phosphatase 100 U/L (40-110); Anion Gap 12 mmol/L (10-20); BUN (Urea Nitrogen) 19 mg/dL (8.4-25.7); Bilirubin, Total 0.8 mg/dL (0.2-1.2); Calc. Creatinine Clearance 52 mL/min (70-130); Calcium 8.9 mg/dL (7.8-10.44); Carbon Dioxide 24 mmol/L (23-31); Chloride 105 mmol/L (98-107); Estimated GFR 57; Glucose 83 mg/dL (83-110); Magnesium 1.9 mg/dL (1.6-2.6); Potassium 4.3 mmol/L (3.5-5.1); Protein, Total 6.2 g/dL (5.8-8.1); Sodium 137 mmol/L (136-145)
[2022-10-22] MEDS ORDERED: Magnesium 2 GM/50 ML(in water) 2 GM in Premix Bag 1 BAG IVPB SCH (08:00)
[2022-10-22] MEDS: Furosemide 40 MG/4 ML VIAL SLOW IVP SCH (09:44)
[2022-10-22] MEDS: Escitalopram Oxalate 20 mg Tablet PO SCH (09:45)
[2022-10-22] MEDS: Clopidogrel Bisulfate 75 MG TAB PO SCH (09:45)
[2022-10-22] MEDS: Empagliflozin 10 MG TAB PO SCH (09:45)
[2022-10-22] MEDS: Potassium Chloride 10 MEQ TAB PO SCH (09:45)
[2022-10-22] MEDS: Aspirin 81 mg Enteric Coated Tablet PO SCH (09:45)
[2022-10-22] MEDS: Amiodarone 200 MG TAB PO SCH ×2 (09:46→20:16)
[2022-10-22] MEDS: Atorvastatin Calcium 40 MG TAB PO SCH (20:16)
[2022-10-23 04:44] LABS: #Basophils 0.1 thou/uL (0.0-0.2); #Eosinphils 0.4 thou/uL (0.0-0.7); #Neutrophils 4.9 thou/uL (1.40-6.50); %Basophils 0.8 % (0.0-1.0); %Eosinophils 5.1 % (0.0-10.0); %Lymphocytes 17.3 % (21.0-51.0); %Monocytes 12.5 % (0.0-10.0); Hemoglobin 12.5 g/dL (14.0-18.0); Mean Corpuscular HGB CONC 33.9 g/dL (32.0-36.0); Mean Corpuscular Hemoglobin 33.3 pg (27.0-31.0); Mean Corpuscular Volume 98.4 fl (78.0-98.0); Mean Platelet Volume 10.3 fL (7.4-10.4); Platelet Count 186 10x3/uL (130-400); RBC Distribution Width 14.8 % (11.5-14.5); Red Blood Cell (RBC) Count 3.75 mill/uL (4.70-6.10); White Blood Cell (WBC) Count 7.6 10x3/uL (4.8-10.8)
[2022-10-23 05:05] LABS: Anion Gap 15 mmol/L (10-20); BUN (Urea Nitrogen) 24 mg/dL (8.4-25.7); Calc. Creatinine Clearance 46 mL/min (70-130); Calcium 9.1 mg/dL (7.8-10.44); Carbon Dioxide 25 mmol/L (23-31); Chloride 103 mmol/L (98-107); Estimated GFR 50; Glucose 77 mg/dL (83-110); Potassium 3.9 mmol/L (3.5-5.1); Sodium 139 mmol/L (136-145)
[2022-10-23] MEDS: Furosemide 40 MG/4 ML VIAL SLOW IVP SCH (09:41)
[2022-10-23] MEDS: Clopidogrel Bisulfate 75 MG TAB PO SCH (09:42)
[2022-10-23] MEDS: Amiodarone 200 MG TAB PO SCH ×2 (09:42→20:35)
[2022-10-23] MEDS: Aspirin 81 mg Enteric Coated Tablet PO SCH (09:42)
[2022-10-23] MEDS: Potassium Chloride 10 MEQ TAB PO SCH (09:42)
[2022-10-23] MEDS: Escitalopram Oxalate 20 mg Tablet PO SCH (09:42)
[2022-10-23] MEDS: Empagliflozin 10 MG TAB PO SCH (09:42)
[2022-10-23] MEDS: Atorvastatin Calcium 40 MG TAB PO SCH (20:35)
[2022-10-24 04:45] LABS: #Basophils 0.1 thou/uL (0.0-0.2); #Eosinphils 0.5 thou/uL (0.0-0.7); #Neutrophils 4.7 thou/uL (1.40-6.50); %Basophils 0.7 % (0.0-1.0); %Eosinophils 6.2 % (0.0-10.0); %Lymphocytes 15.2 % (21.0-51.0); %Neutrophils 64.6 % (42.0-75.0); Hemoglobin 12.3 g/dL (14.0-18.0); Mean Corpuscular HGB CONC 33.1 g/dL (32.0-36.0); Mean Corpuscular Hemoglobin 33.2 pg (27.0-31.0); Mean Corpuscular Volume 100.3 fl (78.0-98.0); Platelet Count 201 10x3/uL (130-400); RBC Distribution Width 14.8 % (11.5-14.5); Red Blood Cell (RBC) Count 3.71 mill/uL (4.70-6.10); White Blood Cell (WBC) Count 7.3 10x3/uL (4.8-10.8)
[2022-10-24 05:08] LABS: Anion Gap 12 mmol/L (10-20); BUN (Urea Nitrogen) 28 mg/dL (8.4-25.7); Calc. Creatinine Clearance 40 mL/min (70-130); Calcium 8.9 mg/dL (7.8-10.44); Carbon Dioxide 27 mmol/L (23-31); Chloride 103 mmol/L (98-107); Estimated GFR 43; Glucose 95 mg/dL (83-110); Sodium 138 mmol/L (136-145)
[2022-10-24] MEDS ORDERED: fentaNYL 50 mcg/mL 1 mL Vial ONE (13:04)
[2022-10-24] MEDS ORDERED: Heparin 10,000 UNITS/ 10 ML VIAL ONE (13:42)
[2022-10-24] MEDS ORDERED: Lidocaine 1% (PF) 30 ML VIAL ONE (13:48)
[2022-10-24] MEDS ORDERED: Midazolam HCl 2 mg/2 ml Vial ONE (14:10)
[2022-10-24] MEDS ORDERED: PROPOFOL 200 MG/20 ML VIAL ONE (14:13)
[2022-10-24] MEDS ORDERED: Lactated Ringer's 1,000 ML IV SCH (14:15)
[2022-10-24] MEDS: Amiodarone 200 MG TAB PO SCH ×2 (14:27→21:20)
[2022-10-24] MEDS: Clopidogrel Bisulfate 75 MG TAB PO SCH (14:27)
[2022-10-24] MEDS: Empagliflozin 10 MG TAB PO SCH (14:27)
[2022-10-24] MEDS: Furosemide 40 MG TAB PO SCH (14:27)
[2022-10-24] MEDS: Aspirin 81 mg Enteric Coated Tablet PO SCH (14:27)
[2022-10-24] MEDS: Potassium Chloride 10 MEQ TAB PO SCH (14:28)
[2022-10-24] MEDS: Escitalopram Oxalate 20 mg Tablet PO SCH (14:28)
[2022-10-24] MEDS ORDERED: DOPamine 400 MG/D5W 250 ML 250 ML ONE (15:00)
[2022-10-24] MEDS: Atorvastatin Calcium 40 MG TAB PO SCH (21:20)
[2022-10-25 04:18] LABS: #Basophils 0.1 thou/uL (0.0-0.2); #Eosinphils 0.4 thou/uL (0.0-0.7); #Neutrophils 4.3 thou/uL (1.40-6.50); %Basophils 0.9 % (0.0-1.0); %Eosinophils 5.4 % (0.0-10.0); %Lymphocytes 17.5 % (21.0-51.0); %Monocytes 13.8 % (0.0-10.0); %Neutrophils 62.1 % (42.0-75.0); Mean Corpuscular HGB CONC 33.4 g/dL (32.0-36.0); Mean Corpuscular Volume 98.7 fl (78.0-98.0); Mean Platelet Volume 9.9 fL (7.4-10.4); Platelet Count 187 10x3/uL (130-400); RBC Distribution Width 14.6 % (11.5-14.5); Red Blood Cell (RBC) Count 3.94 mill/uL (4.70-6.10); White Blood Cell (WBC) Count 6.9 10x3/uL (4.8-10.8)
[2022-10-25 04:39] LABS: Anion Gap 13 mmol/L (10-20); BUN (Urea Nitrogen) 24 mg/dL (8.4-25.7); Calc. Creatinine Clearance 53 mL/min (70-130); Calcium 9.1 mg/dL (7.8-10.44); Carbon Dioxide 24 mmol/L (23-31); Chloride 107 mmol/L (98-107); Estimated GFR 61; Glucose 81 mg/dL (83-110); Sodium 140 mmol/L (136-145)
[2022-10-25] MEDS: Amiodarone 200 MG TAB PO SCH ×2 (09:19→21:42)
[2022-10-25] MEDS: Empagliflozin 10 MG TAB PO SCH (09:19)
[2022-10-25] MEDS: Clopidogrel Bisulfate 75 MG TAB PO SCH (09:19)
[2022-10-25] MEDS: Escitalopram Oxalate 20 mg Tablet PO SCH (09:19)
[2022-10-25] MEDS: Aspirin 81 mg Enteric Coated Tablet PO SCH (09:19)
[2022-10-25] MEDS: Furosemide 40 MG TAB PO SCH (09:19)
[2022-10-25] MEDS: Potassium Chloride 10 MEQ TAB PO SCH (09:20)
[2022-10-25] MEDS: Atorvastatin Calcium 40 MG TAB PO SCH (21:42)
[2022-10-26 05:46] LABS: #Basophils 0.1 thou/uL (0.0-0.2); #Eosinphils 0.4 thou/uL (0.0-0.7); #Neutrophils 4.6 thou/uL (1.40-6.50); %Basophils 1.1 % (0.0-1.0); %Lymphocytes 16.2 % (21.0-51.0); %Monocytes 13.2 % (0.0-10.0); %Neutrophils 64.1 % (42.0-75.0); Hemoglobin 12.5 g/dL (14.0-18.0); Mean Corpuscular HGB CONC 33.4 g/dL (32.0-36.0); Mean Corpuscular Hemoglobin 33.1 pg (27.0-31.0); Mean Corpuscular Volume 98.9 fl (78.0-98.0); Mean Platelet Volume 9.9 fL (7.4-10.4); Platelet Count 179 10x3/uL (130-400); RBC Distribution Width 14.6 % (11.5-14.5); Red Blood Cell (RBC) Count 3.78 mill/uL (4.70-6.10); White Blood Cell (WBC) Count 7.2 10x3/uL (4.8-10.8)
[2022-10-26 06:06] LABS: Anion Gap 12 mmol/L (10-20); BUN (Urea Nitrogen) 23 mg/dL (8.4-25.7); Calc. Creatinine Clearance 50 mL/min (70-130); Calcium 9.1 mg/dL (7.8-10.44); Carbon Dioxide 23 mmol/L (23-31); Chloride 107 mmol/L (98-107); Estimated GFR 57; Glucose 84 mg/dL (83-110); Potassium 3.9 mmol/L (3.5-5.1); Sodium 138 mmol/L (136-145)
[2022-10-26] MEDS: Furosemide 40 MG TAB PO SCH (07:58)
[2022-10-26] MEDS ORDERED: Digoxin 0.5 MG/2 ML AMP SLOW IVP SCH (09:30)
[2022-10-26] MEDS: Empagliflozin 10 MG TAB PO SCH (09:50)
[2022-10-26] MEDS: Potassium Chloride 10 MEQ TAB PO SCH (09:50)
[2022-10-26] MEDS: Aspirin 81 mg Enteric Coated Tablet PO SCH (09:50)
[2022-10-26] MEDS: Clopidogrel Bisulfate 75 MG TAB PO SCH (09:51)
[2022-10-26] MEDS: Amiodarone 200 MG TAB PO SCH ×2 (09:51→21:00)
[2022-10-26] MEDS: Escitalopram Oxalate 20 mg Tablet PO SCH (09:51)
[2022-10-26] MEDS ORDERED: Sodium Chloride 0.9% 250 ML 250 ML IV SCH (10:15)
[2022-10-26] MEDS: Atorvastatin Calcium 40 MG TAB PO SCH (21:00)
[2022-10-27 05:02] LABS: #Basophils 0.1 thou/uL (0.0-0.2); #Eosinphils 0.4 thou/uL (0.0-0.7); #Monocytes 0.8 thou/uL (0.11-0.59); #Neutrophils 3.9 thou/uL (1.40-6.50); %Basophils 1.1 % (0.0-1.0); %Eosinophils 6.9 % (0.0-10.0); %Lymphocytes 17.6 % (21.0-51.0); %Monocytes 12.6 % (0.0-10.0); %Neutrophils 61.5 % (42.0-75.0); Hemoglobin 13.2 g/dL (14.0-18.0); Mean Corpuscular HGB CONC 33.8 g/dL (32.0-36.0); Mean Corpuscular Hemoglobin 33.6 pg (27.0-31.0); Mean Corpuscular Volume 99.5 fl (78.0-98.0); Mean Platelet Volume 9.9 fL (7.4-10.4); Platelet Count 178 10x3/uL (130-400); RBC Distribution Width 14.5 % (11.5-14.5); Red Blood Cell (RBC) Count 3.93 mill/uL (4.70-6.10); White Blood Cell (WBC) Count 6.4 10x3/uL (4.8-10.8)
[2022-10-27 05:24] LABS: Anion Gap 14 mmol/L (10-20); BUN (Urea Nitrogen) 24 mg/dL (8.4-25.7); Calc. Creatinine Clearance 43 mL/min (70-130); Calcium 9.2 mg/dL (7.8-10.44); Carbon Dioxide 24 mmol/L (23-31); Chloride 105 mmol/L (98-107); Estimated GFR 48; Glucose 80 mg/dL (83-110); Sodium 139 mmol/L (136-145)
[2022-10-27] MEDS: Empagliflozin 10 MG TAB PO SCH (08:55)
[2022-10-27] MEDS: Escitalopram Oxalate 20 mg Tablet PO SCH (08:55)
[2022-10-27] MEDS: Potassium Chloride 10 MEQ TAB PO SCH (08:55)
[2022-10-27] MEDS: Furosemide 40 MG TAB PO SCH (08:55)
[2022-10-27] MEDS: Amiodarone 200 MG TAB PO SCH (08:56)
[2022-10-27] MEDS: Aspirin 81 mg Enteric Coated Tablet PO SCH (08:56)
[2022-10-27] MEDS: Clopidogrel Bisulfate 75 MG TAB PO SCH (08:56)
[2022-10-27 12:36] VITALS: BP 120/81; TEMP 97.7
== END 2022-10-27 15:55 | disposition home or self-care (01) | DRG 273 ==
LOC: ERS 07:12 → ERHOLD 09:05 → 2NO 17:26
PROVIDERS: ADMIT Internal Medicine; ATTEND Hospitalist
PROC: 02583ZZ Destruction of Conduction Mechanism, Percutaneous Approach (ICD-10-PCS; principal; 2022-10-24)
DX: I11.0 Hypertensive heart disease with heart failure (principal); I50.43 Acute on chronic combined systolic (congestive) and diastolic (congestive) heart failure; J96.21 Acute and chronic respiratory failure with hypoxia; I48.21 Permanent atrial fibrillation; R74.01 Elevation of levels of liver transaminase levels; Z66 Do not resuscitate; Z96.651 Presence of right artificial knee joint; I49.5 Sick sinus syndrome; Z95.810 Presence of automatic (implantable) cardiac defibrillator; Z86.73 Personal history of transient ischemic attack (TIA), and cerebral infarction without residual deficits; Z88.0 Allergy status to penicillin; Z91.041 Radiographic dye allergy status; Z91.018 Allergy to other foods; Z88.2 Allergy status to sulfonamides; Z79.82 Long term (current) use of aspirin; Z79.899 Other long term (current) drug therapy; Z90.49 Acquired absence of other specified parts of digestive tract; Z82.49 Family history of ischemic heart disease and other diseases of the circulatory system; Z82.3 Family history of stroke; Z87.891 Personal history of nicotine dependence
CPT/HCPCS: 36415; 71045; 80048; 80053; 82550; 83690; 83735; 83880; 84484; 85025; 93005; 93010; 93613; 93623; 93650; 93798; C1726; C1760; C1894; J1160; J1265; J1644; J1940; J2001; J2250; J2704; J3010; J3475; J7050

== ENCOUNTER 2022-11-23 00:51 | Emergency (ER) | payer OTHER ==
[2022-11-23 02:19] LABS: #Eosinphils 0.2 thou/uL (0.0-0.7); #Neutrophils 5.6 thou/uL (1.40-6.50); %Basophils 0.5 % (0.0-1.0); %Eosinophils 3.1 % (0.0-10.0); %Lymphocytes 13.2 % (21.0-51.0); %Monocytes 12.2 % (0.0-10.0); %Neutrophils 70.6 % (42.0-75.0); Hemoglobin 12.3 g/dL (14.0-18.0); Mean Corpuscular HGB CONC 32.5 g/dL (32.0-36.0); Mean Corpuscular Hemoglobin 33.1 pg (27.0-31.0); Mean Corpuscular Volume 101.9 fl (78.0-98.0); Mean Platelet Volume 10.5 fL (7.4-10.4); Platelet Count 171 10x3/uL (130-400); RBC Distribution Width 14.6 % (11.5-14.5); Red Blood Cell (RBC) Count 3.72 mill/uL (4.70-6.10); White Blood Cell (WBC) Count 7.9 10x3/uL (4.8-10.8)
[2022-11-23 02:35] LABS: PTT 29.7 sec (22.9-36.1); Prothrombin Time 13.9 sec (12.0-14.7)
[2022-11-23 02:47] LABS: ALT (SGPT) 17 U/L (8-55); AST (SGOT) 21 U/L (5-34); Albumin 3.9 g/dL (3.4-4.8); Alkaline Phosphatase 114 U/L (40-110); Anion Gap 12 mmol/L (10-20); BUN (Urea Nitrogen) 24 mg/dL (8.4-25.7); Bilirubin, Total 0.5 mg/dL (0.2-1.2); Calc. Creatinine Clearance 0 mL/min (70-130); Calcium 9.2 mg/dL (7.8-10.44); Carbon Dioxide 29 mmol/L (23-31); Chloride 101 mmol/L (98-107); Estimated GFR 38; Globulin 3.5 g/dL (2.4-3.5); Glucose 86 mg/dL (83-110); Potassium 4.1 mmol/L (3.5-5.1); Protein, Total 7.4 g/dL (5.8-8.1); Sodium 138 mmol/L (136-145)
== END 2022-11-23 03:59 | disposition home or self-care (01) ==
LOC: ERS 00:51
DX: S09.90XA Unspecified injury of head, initial encounter (principal); I48.91 Unspecified atrial fibrillation; I11.0 Hypertensive heart disease with heart failure; I50.9 Heart failure, unspecified; W01.198A Fall on same level from slipping, tripping and stumbling with subsequent striking against other object, initial encounter; Z79.82 Long term (current) use of aspirin; Z79.899 Other long term (current) drug therapy
CPT/HCPCS: 36415; 70450; 80053; 85025; 85610; 85730

== ENCOUNTER 2022-12-04 15:00 | Inpatient (IN) | payer OTHER ==
[2022-12-04 15:01] VITALS: BMI 26.5
[2022-12-04 16:15] LABS: Bilirubin Neg (Negative); Blood, Urine 10 (Negative); Clarity Clear (Clear); Glucose, Urine (Dipstick) >=1000 mg/dL (Negative); Ketone, Urine Negative (Negative); Leukocyte Negative (Negative); Nitrite Negative (Negative); Protein, Urine (Dipstick) 15 mg/dl (Neg-Trace); Specific Gravity, Urine 1.015 (1.005-1.030)
[2022-12-04 16:17] LABS: Hematocrit 40.8 % (38.8-50.0); Hemoglobin 13.5 g/dL (13.5-17.5); Mean Corpuscular HGB CONC 33.1 g/dL (32.0-36.0); Mean Corpuscular Hemoglobin 33.1 pg (27.0-33.0); Mean Platelet Volume 10.1 fl (7.4-10.4); Platelet Count 205 10x3/uL (150-450); RBC Distribution Width 14.6 % (11.5-14.5); Red Blood Cell (RBC) Count 4.08 10x6/uL (4.32-5.72); White Blood Cell (WBC) Count 6.2 10x3/uL (3.5-10.5)
[2022-12-04 16:36] LABS: PTT 26.1 sec (22.0-33.0); Prothrombin Time 11.1 sec (9.5-12.1)
[2022-12-04 16:42] LABS: ALT (SGPT) 15 U/L (8-55); AST (SGOT) 22 U/L (5-34); Albumin 4.1 g/dL (3.4-4.8); Alkaline Phosphatase 107 U/L (40-110); Anion Gap 15 mmol/L (10-20); BUN (Urea Nitrogen) 24 mg/dL (8.4-25.7); Calc. Creatinine Clearance 40 mL/min (70-130); Calcium 9.1 mg/dL (7.8-10.44); Carbon Dioxide 29 mmol/L (23-31); Chloride 100 mmol/L (98-107); Estimated GFR 42; Globulin 3.6 g/dL (2.4-3.5); Glucose 92 mg/dL (83-110); Potassium 3.5 mmol/L (3.5-5.1); Protein, Total 7.7 g/dL (5.8-8.1); Sodium 140 mmol/L (136-145)
[2022-12-10] MEDS ORDERED: Protamine Sulfate 50 MG/5 ML VIAL ONE (06:40)
[2022-12-10] MEDS ORDERED: Clindamycin/D5W 900 mg/50 ml Premix Bag ONE (06:40)
[2022-12-10] MEDS ORDERED: Heparin 10,000 UNITS/ 10 ML VIAL ONE (06:40)
[2022-12-10] MEDS ORDERED: Norepinephrine 4 MG/4 ML VIAL ONE (06:58)
[2022-12-10] MEDS ORDERED: SUGAMMADEX SODIUM 200 MG/2 ML VIAL ONE (06:58)
[2022-12-10] MEDS ORDERED: fentaNYL 50 mcg/mL 1 mL Vial ONE (06:58)
[2022-12-10] MEDS ORDERED: PROPOFOL 200 MG/20 ML VIAL ONE (07:51)
[2022-12-10] MEDS ORDERED: Ondansetron PF 4 MG/2 ML Vial ONE (07:51)
[2022-12-10] MEDS ORDERED: Rocuronium Bromide 10 MG/ML (10ML VIAL) ONE (07:51)
[2022-12-10] MEDS ORDERED: Dexamethasone 20 MG/5 ML VIAL ONE (07:51)
[2022-12-10] MEDS ORDERED: Lidocaine 1% PF 5 ML VIAL ONE (07:51)
[2022-12-10] MEDS ORDERED: Ciprofloxacin Lactate/D5W 400 mg/200 ml Premix ONE (08:06)
[2022-12-10] MEDS ORDERED: Iopamidol 370 76% 100 ML VIAL ONE (08:57)
== END 2022-12-10 16:34 | disposition home or self-care (01) | DRG 274 ==
LOC: SURG A 12-10 05:50
PROVIDERS: ADMIT Internal Medicine Cardiovascular Disease; ATTEND Internal Medicine Cardiovascular Disease
PROC: 02L73DK Occlusion of Left Atrial Appendage with Intraluminal Device, Percutaneous Approach (ICD-10-PCS; principal; 2022-12-10)
PROC: 02L73DK Occlusion of Left Atrial Appendage with Intraluminal Device, Percutaneous Approach (ICD-10-PCS; 2022-12-10)
PROC: B245ZZ4 Ultrasonography of Left Heart, Transesophageal (ICD-10-PCS; 2022-12-10)
PROC: 3E033XZ Introduction of Vasopressor into Peripheral Vein, Percutaneous Approach (ICD-10-PCS; 2022-12-10)
DX: I11.0 Hypertensive heart disease with heart failure (principal); I48.19 Other persistent atrial fibrillation; I50.22 Chronic systolic (congestive) heart failure; Z88.2 Allergy status to sulfonamides; Z88.8 Allergy status to other drugs, medicaments and biological substances; Z98.890 Other specified postprocedural states
CPT/HCPCS: 33340; 80053; 81003; 85027; 85347; 85610; 85730; 86850; 86900; 86901; 93005; 93010; 93306; 93312; C1759; C1760; C1894; J0744; J1100; J1644; J2405; J2704; J2720; J3010; J3490; Q9967

== ENCOUNTER 2023-02-13 23:00 | Emergency (ER) | payer OTHER | END 2023-02-14 00:26 | disposition home or self-care (01) | LOC: ERS 23:00 | DX: S00.01XA Abrasion of scalp, initial encounter (principal); I11.0 Hypertensive heart disease with heart failure; I50.9 Heart failure, unspecified; W18.39XA Other fall on same level, initial encounter | CPT/HCPCS: 70450; 72125; 93005 ==

== ENCOUNTER 2023-03-26 05:53 | Day surgery (SDC) | payer OTHER ==
[2023-03-25 10:20] VITALS: BMI 26.9
[2023-03-26] MEDS ORDERED: Lidocaine 1% PF 5 ML VIAL ONE (07:06)
[2023-03-26] MEDS ORDERED: PROPOFOL 20 ML ONE ×2 (08:00→09:24)
== END 2023-03-26 11:05 | disposition home or self-care (01) ==
LOC: SDC 05:53
PROVIDERS: ATTEND Internal Medicine
PROC: 0DB68ZX Excision of Stomach, Via Natural or Artificial Opening Endoscopic, Diagnostic (ICD-10-PCS; principal; 2023-03-26)
PROC: 0DJD8ZZ Inspection of Lower Intestinal Tract, Via Natural or Artificial Opening Endoscopic (ICD-10-PCS; 2023-03-26)
DX: D50.9 Iron deficiency anemia, unspecified (principal); K44.9 Diaphragmatic hernia without obstruction or gangrene; K57.30 Diverticulosis of large intestine without perforation or abscess without bleeding; K64.8 Other hemorrhoids; R10.30 Lower abdominal pain, unspecified; K21.9 Gastro-esophageal reflux disease without esophagitis; I11.0 Hypertensive heart disease with heart failure; I50.9 Heart failure, unspecified; E78.00 Pure hypercholesterolemia, unspecified; I48.91 Unspecified atrial fibrillation; Z86.73 Personal history of transient ischemic attack (TIA), and cerebral infarction without residual deficits; Z87.891 Personal history of nicotine dependence; Z88.0 Allergy status to penicillin; Z88.2 Allergy status to sulfonamides; Z91.011 Allergy to milk products; Z79.02 Long term (current) use of antithrombotics/antiplatelets; Z79.82 Long term (current) use of aspirin
CPT/HCPCS: 88305; J2704

== ENCOUNTER → 2023-05-15 | Day surgery (SDC) | payer OTHER ==
[2023-05-13 12:16] VITALS: BMI 27.2
[2023-05-13 13:25] LABS: PTT 24.2 sec (22.0-33.0); Prothrombin Time 10.8 sec (9.5-12.1)
[2023-05-13 13:27] LABS: Hematocrit 28.6 % (38.8-50.0); Hemoglobin 9.3 g/dL (13.5-17.5); Mean Corpuscular HGB CONC 32.5 g/dL (32.0-36.0); Mean Corpuscular Hemoglobin 31.3 pg (27.0-33.0); Mean Corpuscular Volume 96.3 fl (81.2-95.1); Mean Platelet Volume 9.7 fl (7.4-10.4); Platelet Count 278 10x3/uL (150-450); Red Blood Cell (RBC) Count 2.97 10x6/uL (4.32-5.72); White Blood Cell (WBC) Count 6.5 10x3/uL (3.5-10.5)
[2023-05-13 13:30] LABS: ALT (SGPT) 17 U/L (8-55); AST (SGOT) 19 U/L (5-34); Albumin 3.8 g/dL (3.4-4.8); Alkaline Phosphatase 121 U/L (40-110); Anion Gap 15 mmol/L (10-20); BUN (Urea Nitrogen) 32 mg/dL (8.4-25.7); Bilirubin, Direct 0.2 mg/dL (0.1-0.3); Bilirubin, Total 0.5 mg/dL (0.2-1.2); Calc. Creatinine Clearance 49 mL/min (70-130); Calcium 8.8 mg/dL (7.8-10.44); Carbon Dioxide 27 mmol/L (23-31); Chloride 105 mmol/L (98-107); Estimated GFR 52; Glucose 84 mg/dL (83-110); Potassium 3.7 mmol/L (3.5-5.1); Protein, Total 6.6 g/dL (5.8-8.1); Sodium 143 mmol/L (136-145)
[2023-05-13 13:47] LABS: Thyroid Stimulating Hormone 1.2237 uIU/mL (0.35-4.94)
[2023-05-13 20:18] LABS: T4 7.57 ug/dL (4.87-11.72)
[~2023-05-15] MED LIST: Ketamine In 0.9 % NaCl 50 MG/5 ML SYRINGE ONE; Lidocaine 1% PF 5 ML VIAL ONE; PROPOFOL 200 MG/20 ML VIAL ONE
== END | disposition home or self-care (01) ==
LOC: SDC 05:34
PROVIDERS: ATTEND Internal Medicine Cardiovascular Disease
PROC: B246ZZ4 Ultrasonography of Right and Left Heart, Transesophageal (ICD-10-PCS; principal; 2023-05-15)
DX: I48.19 Other persistent atrial fibrillation (principal); I49.3 Ventricular premature depolarization; I50.30 Unspecified diastolic (congestive) heart failure; T82.539A Leakage of unspecified cardiac and vascular devices and implants, initial encounter; I36.1 Nonrheumatic tricuspid (valve) insufficiency; E78.5 Hyperlipidemia, unspecified; I10 Essential (primary) hypertension; Z95.810 Presence of automatic (implantable) cardiac defibrillator; Z92.89 Personal history of other medical treatment; Z79.82 Long term (current) use of aspirin; Z79.899 Other long term (current) drug therapy; Z79.02 Long term (current) use of antithrombotics/antiplatelets; Z88.0 Allergy status to penicillin; Z88.2 Allergy status to sulfonamides; Z87.891 Personal history of nicotine dependence; Z90.49 Acquired absence of other specified parts of digestive tract; Z86.73 Personal history of transient ischemic attack (TIA), and cerebral infarction without residual deficits; Z92.29 Personal history of other drug therapy; Y83.1 Surgical operation with implant of artificial internal device as the cause of abnormal reaction of the patient, or of later complication, without mention of misadventure at the time of the procedure
CPT/HCPCS: 80048; 80076; 84436; 84443; 84479; 85027; 85610; 85730; 93312; J3490

== ENCOUNTER 2023-06-03 18:19 | Inpatient (IN) | payer OTHER ==
[2023-06-03] MEDS ORDERED: Ondansetron ODT 4 MG TAB SL PRN (19:00)
[2023-06-03] MEDS ORDERED: Ondansetron PF 4 MG/2 ML Vial IVP PRN (19:00)
[2023-06-03] MEDS ORDERED: Sodium Chloride 0.9% 1,000 ML IV SCH (19:00)
[2023-06-03 20:39] LABS: #Eosinphils 0.1 thou/uL (0.0-0.7); #Monocytes 1.1 thou/uL (0.11-0.59); #Neutrophils 7.5 thou/uL (1.40-6.50); %Basophils 0.3 % (0.0-1.0); %Eosinophils 0.5 % (0.0-10.0); %Lymphocytes 6.6 % (21.0-51.0); %Monocytes 11.5 % (0.0-10.0); %Neutrophils 80.8 % (42.0-75.0); Hematocrit 24.4 % (42.0-52.0); Hemoglobin 7.7 g/dL (14.0-18.0); Mean Corpuscular HGB CONC 31.6 g/dL (32.0-36.0); Mean Corpuscular Hemoglobin 29.5 pg (27.0-31.0); Mean Corpuscular Volume 93.5 fl (78.0-98.0); Mean Platelet Volume 10.1 fL (7.4-10.4); Platelet Count 254 10x3/uL (130-400); RBC Distribution Width 17.2 % (11.5-14.5); Red Blood Cell (RBC) Count 2.61 mill/uL (4.70-6.10); White Blood Cell (WBC) Count 9.3 10x3/uL (4.8-10.8)
[2023-06-03 21:04] LABS: Anion Gap 12 mmol/L (10-20); BUN (Urea Nitrogen) 29 mg/dL (8.4-25.7); Calc. Creatinine Clearance 43 mL/min (70-130); Calcium 8.4 mg/dL (7.8-10.44); Carbon Dioxide 26 mmol/L (23-31); Chloride 100 mmol/L (98-107); Estimated GFR 46; Glucose 115 mg/dL (83-110); Iron 17 ug/dL (65-175); Iron 19 ug/dL (65-175); Iron Binding Capacity, Total 281 mcg/dL (261-462); Iron Binding Capacity, Total 285 mcg/dL (261-462); Magnesium 2.1 mg/dL (1.6-2.6); Potassium 3.2 mmol/L (3.5-5.1); Sodium 135 mmol/L (136-145)
[2023-06-03 21:10] LABS: Critical Call Chem Troponin I NUR.SC14@2110; Troponin I 0.346 ng/mL (< 0.028)
[2023-06-03 22:01] VITALS: BMI 26.7
[2023-06-03] MEDS: Acetaminophen 325 MG TAB PO PRN (22:21)
[2023-06-04] MEDS: Potassium Bicarbonate/Cit Ac 20 MEQ TAB PO SCH (01:20)
[2023-06-04 01:34] LABS: Critical Call Chem Troponin I RESULT DECREASING
[2023-06-04 06:34] LABS: #Eosinphils 0.2 thou/uL (0.0-0.7); #Monocytes 1.3 thou/uL (0.11-0.59); #Neutrophils 7.6 thou/uL (1.40-6.50); %Basophils 0.4 % (0.0-1.0); %Lymphocytes 9.4 % (21.0-51.0); %Monocytes 12.5 % (0.0-10.0); %Neutrophils 75.3 % (42.0-75.0); Hematocrit 24.3 % (42.0-52.0); Hemoglobin 7.7 g/dL (14.0-18.0); Mean Corpuscular HGB CONC 31.7 g/dL (32.0-36.0); Mean Corpuscular Hemoglobin 29.2 pg (27.0-31.0); Mean Platelet Volume 10.4 fL (7.4-10.4); Platelet Count 272 10x3/uL (130-400); RBC Distribution Width 17.3 % (11.5-14.5); Red Blood Cell (RBC) Count 2.64 mill/uL (4.70-6.10); White Blood Cell (WBC) Count 10.1 10x3/uL (4.8-10.8)
[2023-06-04 06:55] LABS: Anion Gap 13 mmol/L (10-20); BUN (Urea Nitrogen) 28 mg/dL (8.4-25.7); Calc. Creatinine Clearance 42 mL/min (70-130); Calcium 8.4 mg/dL (7.8-10.44); Carbon Dioxide 26 mmol/L (23-31); Chloride 100 mmol/L (98-107); Estimated GFR 46; Glucose 92 mg/dL (83-110); Potassium 3.1 mmol/L (3.5-5.1); Sodium 136 mmol/L (136-145)
[2023-06-04] MEDS: Empagliflozin 10 MG TAB PO SCH (08:23)
[2023-06-04] MEDS: Ferrous Sulfate 325 MG TAB PO SCH (08:23)
[2023-06-04] MEDS: Aspirin Chewable 81 MG TAB PO SCH (08:23)
[2023-06-04] MEDS: Escitalopram Oxalate 20 mg Tablet PO SCH (08:24)
[2023-06-04] MEDS: Amiodarone 200 MG TAB PO SCH ×2 (12:18→14:43)
[2023-06-04] MEDS: Potassium Chloride 20 MEQ TAB PO SCH ×2 (12:18→17:24)
[2023-06-04] MEDS: Iron, Sodium Ferric Gluconate 250 MG in Sodium Chloride 0.9% 250 ML 250 ML IVPB SCH (12:19)
[2023-06-04] MEDS: Furosemide 40 MG (4 mL) VIAL SLOW IVP SCH (15:22)
[2023-06-04] MEDS: Atorvastatin Calcium 40 MG TAB PO SCH (20:53)
[2023-06-05 05:56] LABS: #Monocytes 1.2 thou/uL (0.11-0.59); #Neutrophils 10.1 thou/uL (1.40-6.50); %Basophils 0.3 % (0.0-1.0); %Eosinophils 0.1 % (0.0-10.0); %Lymphocytes 5.1 % (21.0-51.0); %Monocytes 9.6 % (0.0-10.0); %Neutrophils 84.4 % (42.0-75.0); Hematocrit 23.7 % (42.0-52.0); Hemoglobin 7.6 g/dL (14.0-18.0); Mean Corpuscular HGB CONC 32.1 g/dL (32.0-36.0); Mean Corpuscular Hemoglobin 28.9 pg (27.0-31.0); Mean Corpuscular Volume 90.1 fl (78.0-98.0); Mean Platelet Volume 10.3 fL (7.4-10.4); Platelet Count 287 10x3/uL (130-400); RBC Distribution Width 17.5 % (11.5-14.5); Red Blood Cell (RBC) Count 2.63 mill/uL (4.70-6.10)
[2023-06-05 06:13] LABS: Anion Gap 14 mmol/L (10-20); BUN (Urea Nitrogen) 28 mg/dL (8.4-25.7); Calc. Creatinine Clearance 46 mL/min (70-130); Calcium 8.4 mg/dL (7.8-10.44); Carbon Dioxide 27 mmol/L (23-31); Chloride 103 mmol/L (98-107); Estimated GFR 50; Glucose 95 mg/dL (83-110); Magnesium 2.1 mg/dL (1.6-2.6); Potassium 3.8 mmol/L (3.5-5.1); Sodium 140 mmol/L (136-145)
[2023-06-05] MEDS: Amiodarone 200 MG TAB PO SCH (08:21)
[2023-06-05] MEDS: Iron, Sodium Ferric Gluconate 250 MG in Sodium Chloride 0.9% 250 ML 250 ML IVPB SCH (08:50)
[2023-06-05] MEDS: Lidocaine 4% Patch TD SCH (13:31)
[2023-06-05] MEDS: Transdermal Patch Removal TOP SCH (22:57)
[2023-06-06] MEDS: traMADol HCl 50 MG TAB PO PRN (01:14)
[2023-06-06] MEDS: Morphine 2 MG/ML VIAL SLOW IVP SCH (03:38)
[2023-06-06] MEDS: Furosemide 40 MG TAB PO SCH (08:13)
[2023-06-06] MEDS: Lidocaine 4% Patch TD SCH (08:13)
[2023-06-06] MEDS: Ferrous Sulfate 325 MG TAB PO SCH (08:13)
[2023-06-06] MEDS: Potassium Chloride 20 MEQ TAB PO SCH (08:13)
[2023-06-06 16:19] VITALS: BP 125/75; TEMP 98.2
== END 2023-06-06 16:55 | disposition home or self-care (01) | DRG 280 ==
LOC: INTOOBSV 18:19 → 2SW 18:19 → OBSVTOIN 06-04 08:42
PROVIDERS: ADMIT Family Medicine; ATTEND Hospitalist
DX: I13.0 Hypertensive heart and chronic kidney disease with heart failure and stage 1 through stage 4 chronic kidney disease, or unspecified chronic kidney disease (principal); I50.23 Acute on chronic systolic (congestive) heart failure; I21.A1 Myocardial infarction type 2; J96.01 Acute respiratory failure with hypoxia; K92.1 Melena; I48.91 Unspecified atrial fibrillation; N18.30 Chronic kidney disease, stage 3 unspecified; Z88.0 Allergy status to penicillin; Z91.041 Radiographic dye allergy status; Z88.2 Allergy status to sulfonamides; Z79.82 Long term (current) use of aspirin; Z79.899 Other long term (current) drug therapy; D63.1 Anemia in chronic kidney disease; Z82.49 Family history of ischemic heart disease and other diseases of the circulatory system; Z98.890 Other specified postprocedural states; Z87.891 Personal history of nicotine dependence; Z95.810 Presence of automatic (implantable) cardiac defibrillator; D50.0 Iron deficiency anemia secondary to blood loss (chronic); E87.6 Hypokalemia; I35.0 Nonrheumatic aortic (valve) stenosis; I34.0 Nonrheumatic mitral (valve) insufficiency
CPT/HCPCS: 36415; 71045; 80048; 82274; 82728; 83540; 83550; 83735; 83880; 85025; 86850; 86900; 86901; 93005; 93010; 93306; 97139; G0378; J1940; J2272; J2916; J7050

== ENCOUNTER 2024-02-01 14:34 | Outpatient (CLI) | payer MEDICARE | END 2024-02-01 14:35 | disposition home or self-care (01) | LOC: RAD 14:34 | PROVIDERS: ATTEND Student in an Organized Health Care Education/Training Program | DX: J90 Pleural effusion, not elsewhere classified (principal); I51.7 Cardiomegaly | CPT/HCPCS: 71046 ==

== ENCOUNTER 2024-02-05 06:43 | Day surgery (SDC) | payer OTHER ==
[2024-02-04 12:06] VITALS: BMI 26.5
[2024-02-05] MEDS ORDERED: PROPOFOL 20 ML ONE (07:38)
[2024-02-05] MEDS ORDERED: Bupivacaine PF 0.5% 30 ML VIAL ONE (07:55)
[2024-02-05] MEDS ORDERED: Clindamycin/D5W 900 mg/50 ml Premix Bag ONE (08:06)
[2024-02-05] MEDS ORDERED: fentaNYL PF 100 MCG/2 ML SYRINGE ONE (08:13)
[2024-02-05] MEDS ORDERED: Midazolam HCl 2 mg/2 ml Vial ONE (08:14)
== END 2024-02-05 10:02 | disposition home or self-care (01) ==
LOC: SDC 06:43
PROVIDERS: ATTEND Student in an Organized Health Care Education/Training Program
PROC: 0WPB30Z Removal of Drainage Device from Left Pleural Cavity, Percutaneous Approach (ICD-10-PCS; principal; 2024-02-05)
DX: J90 Pleural effusion, not elsewhere classified (principal); E78.5 Hyperlipidemia, unspecified; I11.0 Hypertensive heart disease with heart failure; I50.9 Heart failure, unspecified; I25.10 Atherosclerotic heart disease of native coronary artery without angina pectoris; D64.9 Anemia, unspecified; I48.20 Chronic atrial fibrillation, unspecified; Z98.890 Other specified postprocedural states; Z79.899 Other long term (current) drug therapy; Z90.49 Acquired absence of other specified parts of digestive tract; Z87.891 Personal history of nicotine dependence; Z88.0 Allergy status to penicillin; Z88.2 Allergy status to sulfonamides; Z88.8 Allergy status to other drugs, medicaments and biological substances; Z95.818 Presence of other cardiac implants and grafts; Z91.041 Radiographic dye allergy status
CPT/HCPCS: 32552; 93005; J2250; J2704; J3490; 93010; J0665

== ENCOUNTER 2024-02-22 14:15 | Outpatient (CLI) | payer OTHER | END 2024-02-22 14:16 | disposition home or self-care (01) | LOC: RAD 14:15 | PROVIDERS: ATTEND Student in an Organized Health Care Education/Training Program | DX: J90 Pleural effusion, not elsewhere classified (principal); R91.8 Other nonspecific abnormal finding of lung field | CPT/HCPCS: 71046 ==